=== PATIENT | male | born 1970 | race Two or more races ===

== ENCOUNTER 2017-06-28 19:56 | Emergency (ER) | payer OTHER ==
[~2017-06-28] VITALS: Ht 185.4 cm; Wt 88.5 kg
[2017-06-28 19:56] VITALS: BP 115/75
--- NOTE | 2017-06-28 20:47 | Emergency Room Report ---
History of Present Illness General Chief Complaint: Medical Clearance Source: Patient Present Illness HPI 46-year-old male, brought by law enforcement, incarcerated for battery, states that he felt short of breath at the station. States that he has had a cough, productive with white sputum. No fever no chills. No chest pain. States that he smokes. Patient History Past Medical History: see triage record Past Surgical History: none Pertinent Family History: none Reviewed Nursing Documentation: PMH: Agreed, PSxH: Agreed Nursing Documentation-PMH Past Medical History Deferred: Pt Cognitively Impaired Review of Systems All Other Systems: negative except mentioned in HPI Physical Exam Vital Signs Date Time Temp Pulse Resp B/P (MAP) Pulse Ox O2 Delivery O2 Flow Rate FiO2 06/28/17 19:51 98.1 100 16 115/75 98 Room Air Sp02 EP Interpretation: reviewed, normal General Appearance: normal inspection, well appearing, no apparent distress, alert, GCS 15, non-toxic Head: normocephalic, atraumatic Eyes: bilateral eye normal inspection, bilateral eye PERRL, bilateral eye EOMI ENT: normal ENT inspection, normal pharynx, normal voice, moist mucus membranes Neck: normal inspection, full range of motion, supple Respiratory: normal inspection, lungs clear, normal breath sounds, no respiratory distress, no retraction, no wheezing, speaking full sentences, chest symmetrical Cardiovascular #1: normal inspection, regular rate, rhythm, no edema, normal capillary refill Cardiovascular #2: 2+ radial (R), 2+ radial (L) Gastrointestinal: normal inspection, non tender, soft, non-distended, no guarding Genitourinary: no CVA tenderness Musculoskeletal: normal inspection, back normal, normal range of motion, non- tender Neurologic: normal inspection, alert, oriented x3, responsive, motor strength/ tone normal, sensory intact, normal gait, speech normal Psychiatric: normal inspection, judgement/insight normal, memory normal Skin: normal inspection, normal color, no rash, warm/dry, well hydrated, normal turgor Medical Decision Making Diagnostic Impression: Primary Impression: Dyspnea Additional Impression: Viral upper respiratory illness ER Course 46-year-old male presenting with cough DDX: Viral URI vs. pneumonia Plan: CXR ER course: Patient remains nontoxic, not in resp distress. CXR obtained - no acute infiltrate Disposition: Patient is to be discharged to [facility] cement Strict precautions discussed with patient on when to return to the emergency room including hemoptysis, high fevers, chills, SOB, chest pain which may indicate severe illness. Please note that this Emergency Department Report was dictated using [employer] scale assembler and [employer] technology software, occasionally this can lead to erroneous entry secondary to interpretation by the dictation equipment Chest X-ray CXR: Ordered: Yes 1 view Indication: Cough EP interpretation: Yes Interpretation: No consolidation, no effusion, no PTX, no acute cardiopulmonary disease Impression: No acute disease Electronically signed by Yanira Jones MD Last Vital Signs Date Time Temp Pulse Resp B/P (MAP) Pulse Ox O2 Delivery O2 Flow Rate FiO2 06/28/17 19:51 98.1 100 16 115/75 98 Room Air Disposition: HOME, SELF-CARE Condition: Stable Scripts No Active Prescriptions or Reported Meds Departure Forms: Longterm Clearance Patient Instructions: Shortness of Breath, [id number], Upper Respiratory Infection, Adult Yanira Jones M.D. Jun 28, 2017 20:47
[2017-06-28 21:00] VITALS: BP 125/80
--- NOTE | 2017-06-29 09:46 | Diagnostic Imaging Report ---
Indication: SOB Technique: XRAY CHEST 1 V Comparison: None. Findings: The cardiomediastinal silhouette is normal. The lungs are clear. There is no evidence of pleural fluid. The bones are unremarkable. Impression: Normal chest.
== END 2017-06-28 21:00 | disposition home or self-care (01) ==
LOC: EDBD 19:56 → EMR 20:47
DX: J06.9 Acute upper respiratory infection, unspecified (principal); B34.9 Viral infection, unspecified
CPT/HCPCS: 71010; 99283